=== PATIENT | male | born 1940 | race Caucasian/White ===

== ENCOUNTER → 2018-07-04 | Outpatient (CLI) | payer MEDICARE, BC ==
[2018-07-04 17:48] LABS: BASO # 0.1 (0.0-0.2); BASO % 1.2 % (0.0-2.0); EOS # 0.1 (0.0-0.7); GRAN # 3.6 (1.4-6.5); GRAN % 55.1 % (42.2-75.2); HEMATOCRIT 44.3 % (42.0-52.0); HEMOGLOBIN 15.3 g/dl (13.5-18.0); LYMPH # 2.1 (1.2-3.4); LYMPH % 31.6 % (20.0-51.0); MEAN CELL VOLUME 99 fl (80.0-100.0); MEAN CORPUSCULAR HEMOGLOBIN 34 pg (27.0-31.0); MEAN CORPUSCULAR HGB CONC 35 g/dl (33.0-37.0); MEAN PLATELET VOLUME 9.5 fl (7.4-10.4); MONO # 0.6 (0.1-0.6); MONO % 9.8 % (1.7-9.3); PLATELET COUNT 175 K/mm3 (130-400); RED BLOOD COUNT 4.47 M/mm3 (4.20-5.60); REDCELL DISTRIBUTION WIDTH-CV 11.7 % (11.5-14.5)
[2018-07-04 19:07] LABS: ALBUMIN 3.6 gm/dL (3.5-5.0); BILIRUBIN,TOTAL 0.6 mg/dL (0.0-1.0); CALCIUM 9.1 mg/dL (8.4-10.2); CREATININE, serum 1.09 mg/dL (0.66-1.25); POTASSIUM 4.5 mmol/L (3.4-5.0); TOTAL PROTEIN 6.5 gm/dL (6.4-8.2)
== END ==
LOC: COL.LAB 17:02
PROVIDERS: Family Medicine
DX: R55 Syncope and collapse (principal)

== ENCOUNTER 2020-08-14 07:56 | Inpatient (IN) | payer MEDICARE, BC ==
[~2020-08-14] VITALS: Ht 170.2 cm; Wt 73.3 kg
[2020-08-14] VITALS (225 sets, daily range): BP systolic 146–167; BP diastolic 64–78; PULSE 95–107; TEMP 98–98.8; O2SAT 79–98
[2020-08-14] MEDS ORDERED: TOPROL XL 25MG25 MG PO (08:05)
[2020-08-14] MEDS ORDERED: NAMENDA 10MG TA10 MG PO (08:05)
[2020-08-14] MEDS ORDERED: RISPERDAL 0.20.25 MG PO (08:06)
[2020-08-14] MEDS ORDERED: ZOCOR 40MG40 MG PO (08:07)
[2020-08-14] MEDS ORDERED: GLUCOPHAGE500 MG/TAB PO (08:08)
[2020-08-14] MEDS ORDERED: ASPIRIN E.C. 8181 MG PO (08:08)
[2020-08-14] MEDS ORDERED: ONE-A-DAY ESSE1 EACH PO (08:09)
[2020-08-14] MEDS ORDERED: VITAMIN D31000 IU PO (08:09)
[2020-08-14] MEDS ORDERED: STOOL SOFTENER100 M2 PO (08:10)
[2020-08-14 08:24] LABS: COLLECTION METHOD CATHETER
[2020-08-14 08:30] LABS: PH 5 (5-8); URINE APPEARANCE Clear; URINE BACTERIA None Seen /hpf; URINE BILIRUBIN Negative (NEGATIVE); URINE BLOOD Negative (NEGATIVE); URINE COLOR Yellow; URINE GLUCOSE 3+ (NEGATIVE); URINE KETONE 2+ (NEGATIVE); URINE LEUKOCYTE ESTERASE Negative (NEGATIVE); URINE NITRATE Negative (NEGATIVE); URINE PROTEIN(semi-quant) Negative (NEGATIVE); URINE RBC 0-2 /hpf; URINE UROBILINOGEN >=4.0 mg/dL (NEGATIVE)
[2020-08-14 08:52] LABS: MUCOUS Present /lpf; SQUAMOUS EPITHELIAL 0-2 /hpf
[2020-08-14 09:00] LABS: ALKALINE PHOSPHATASE 89 U/L (50-136); ANION GAP 13 mmol/L (7-16); AST,SGOT 41 U/L (15-37); BASO % 0.3 % (0.0-2.0); BILIRUBIN,TOTAL 1.3 mg/dL (0.0-1.0); BLOOD UREA NITROGEN 12 mg/dL (9-20); CARBON DIOXIDE 23 mmol/L (22-30); CHLORIDE 102 mmol/L (98-107); GLUCOSE 290 mg/dL (74-106); GRAN # 13.9 (1.4-6.5); GRAN % 88.5 % (42.2-75.2); HEMATOCRIT 44.7 % (42.0-52.0); HEMOGLOBIN 15.3 g/dl (13.5-18.0); LIPASE 59 U/L (23-300); LYMPH # 0.4 (1.2-3.4); LYMPH % 2.7 % (20.0-51.0); MEAN CELL VOLUME 97 fl (80.0-100.0); MEAN CORPUSCULAR HEMOGLOBIN 33 pg (27.0-31.0); MEAN CORPUSCULAR HGB CONC 34 g/dl (33.0-37.0); MEAN PLATELET VOLUME 9.9 fl (7.4-10.4); MONO # 1.3 (0.1-0.6); MONO % 8.1 % (1.7-9.3); PLATELET COUNT 189 K/mm3 (130-400); POTASSIUM 4.4 mmol/L (3.4-5.0); REDCELL DISTRIBUTION WIDTH-CV 11.5 % (11.5-14.5); SODIUM 137 mmol/L (137-145); TOTAL PROTEIN 7.2 gm/dL (6.4-8.2)
[2020-08-14 09:06] LABS: ALANINE AMINOTRANSFERASE 27 U/L (4-49)
[2020-08-14 09:25] LABS: TROPONIN-I < 0.012 ng/mL (0.000-0.035)
[2020-08-15] VITALS (8 sets, daily range): BP systolic 140–168; BP diastolic 63–91; PULSE 89–115; TEMP 97.5–99.6
[2020-08-15 06:31] LABS: MEAN CELL VOLUME 97 fl (80.0-100.0); MEAN CORPUSCULAR HEMOGLOBIN 34 pg (27.0-31.0); MEAN CORPUSCULAR HGB CONC 35 g/dl (33.0-37.0); MEAN PLATELET VOLUME 10.5 fl (7.4-10.4); PLATELET COUNT 165 K/mm3 (130-400); RED BLOOD COUNT 4.12 M/mm3 (4.20-5.60); REDCELL DISTRIBUTION WIDTH-CV 11.9 % (11.5-14.5)
[2020-08-15 06:45] LABS: CALCIUM 8.5 mg/dL (8.4-10.2); CREATININE, serum 0.53 (0.66-1.25); MAGNESIUM 1.6 mg/dL (1.6-2.3); POTASSIUM 3.3 mmol/L (3.4-5.0)
[2020-08-15 07:02] LABS: BAND 12 % (0-10); LYMPHOCYTE 4 % (20.0-51.0); NEUTROPHILS 77 % (42.0-75.2); PLATELET ESTIMATE NORMAL (NORMAL)
[2020-08-16] VITALS (353 sets, daily range): BP systolic 141–159; BP diastolic 77–93; PULSE 84–107; TEMP 98–98.5; O2SAT 91–100
[2020-08-16 08:04] LABS: HEMATOCRIT 38.6 % (42.0-52.0); HEMOGLOBIN 12.7 g/dl (13.5-18.0); MEAN CELL VOLUME 101 fl (80.0-100.0); MEAN CORPUSCULAR HEMOGLOBIN 33 pg (27.0-31.0); MEAN CORPUSCULAR HGB CONC 33 g/dl (33.0-37.0); MEAN PLATELET VOLUME 10.5 fl (7.4-10.4); PLATELET COUNT 154 K/mm3 (130-400); RED BLOOD COUNT 3.81 M/mm3 (4.20-5.60); REDCELL DISTRIBUTION WIDTH-CV 12.1 % (11.5-14.5)
[2020-08-16 08:12] LABS: ALBUMIN 2.7 gm/dL (3.5-5.0); BILIRUBIN,TOTAL 2.5 mg/dL (0.0-1.0); CALCIUM 8.1 mg/dL (8.4-10.2); CREATININE, serum 0.52 (0.66-1.25); POTASSIUM 3.6 mmol/L (3.4-5.0); TOTAL PROTEIN 5.5 gm/dL (6.4-8.2)
[2020-08-16 08:23] LABS: HYPOCHROMIA 1+; LYMPHOCYTE 4 % (20.0-51.0); MYELOCYTE 1 % (0-0); NEUTROPHILS 90 % (42.0-75.2); PLATELET ESTIMATE NORMAL (NORMAL)
[2020-08-17] VITALS (678 sets, daily range): BP systolic 138–162; BP diastolic 74–96; PULSE 80–107; TEMP 98.7–99.1; O2SAT 87–98
[2020-08-17 05:40] LABS: BASO % 0.3 % (0.0-2.0); EOS # 0.1 (0.0-0.7); EOS % 0.7 % (0-4.0); GRAN # 8.5 (1.4-6.5); GRAN % 77.7 % (42.2-75.2); HEMOGLOBIN 11.7 g/dl (13.5-18.0); LYMPH # 1.2 (1.2-3.4); LYMPH % 10.9 % (20.0-51.0); MEAN CELL VOLUME 100 fl (80.0-100.0); MEAN CORPUSCULAR HEMOGLOBIN 34 pg (27.0-31.0); MEAN CORPUSCULAR HGB CONC 34 g/dl (33.0-37.0); MEAN PLATELET VOLUME 9.7 fl (7.4-10.4); MONO % 9.6 % (1.7-9.3); PLATELET COUNT 167 K/mm3 (130-400); RED BLOOD COUNT 3.49 M/mm3 (4.20-5.60); REDCELL DISTRIBUTION WIDTH-CV 12.2 % (11.5-14.5)
[2020-08-17 05:45] LABS: HEMATOCRIT 34.8 % (42.0-52.0)
[2020-08-17 05:53] LABS: ALBUMIN 2.5 gm/dL (3.5-5.0); BILIRUBIN,TOTAL 2.9 mg/dL (0.0-1.0); CALCIUM 7.9 mg/dL (8.4-10.2); CREATININE, serum 0.51 (0.66-1.25); POTASSIUM 3.7 mmol/L (3.4-5.0); TOTAL PROTEIN 5.4 gm/dL (6.4-8.2)
[2020-08-18] VITALS (7 sets, daily range): BP systolic 139–169; BP diastolic 63–89; PULSE 76–110; TEMP 97.7–99.8
[2020-08-18 06:49] LABS: BASO # 0.1 (0.0-0.2); BASO % 0.6 % (0.0-2.0); EOS # 0.3 (0.0-0.7); EOS % 3.2 % (0-4.0); GRAN # 5.7 (1.4-6.5); GRAN % 72.3 % (42.2-75.2); LYMPH % 12.6 % (20.0-51.0); MEAN CELL VOLUME 100 fl (80.0-100.0); MEAN CORPUSCULAR HEMOGLOBIN 34 pg (27.0-31.0); MEAN CORPUSCULAR HGB CONC 34 g/dl (33.0-37.0); MEAN PLATELET VOLUME 9.7 fl (7.4-10.4); MONO # 0.8 (0.1-0.6); MONO % 10.4 % (1.7-9.3); PLATELET COUNT 172 K/mm3 (130-400); RED BLOOD COUNT 2.94 M/mm3 (4.20-5.60); REDCELL DISTRIBUTION WIDTH-CV 12.2 % (11.5-14.5)
[2020-08-18 06:51] LABS: HEMATOCRIT 29.4 % (42.0-52.0)
[2020-08-18 07:04] LABS: CALCIUM 7.8 mg/dL (8.4-10.2); CREATININE, serum 0.49 (0.66-1.25); POTASSIUM 3.4 mmol/L (3.4-5.0)
[2020-08-18 08:12] LABS: ALBUMIN 2.2 gm/dL (3.5-5.0); BILIRUBIN UNCONJUGATED 0.7 mg/dL (0.0-1.1); BILIRUBIN,DIRECT 0.5 mg/dL (0.0-0.4); BILIRUBIN,TOTAL 1.2 mg/dL (0.0-1.0); TOTAL PROTEIN 4.8 gm/dL (6.4-8.2)
[2020-08-19] VITALS (357 sets, daily range): BP systolic 132–181; BP diastolic 76–104; PULSE 91–121; TEMP 98.2–100.1; O2SAT 88–100
[2020-08-19 07:20] LABS: HEMOGLOBIN 11.8 g/dl (13.5-18.0); MEAN CELL VOLUME 98 fl (80.0-100.0); MEAN CORPUSCULAR HEMOGLOBIN 33 pg (27.0-31.0); MEAN CORPUSCULAR HGB CONC 34 g/dl (33.0-37.0); MEAN PLATELET VOLUME 9.8 fl (7.4-10.4); PLATELET COUNT 240 K/mm3 (130-400); RED BLOOD COUNT 3.57 M/mm3 (4.20-5.60); REDCELL DISTRIBUTION WIDTH-CV 11.9 % (11.5-14.5)
[2020-08-19 07:26] LABS: HEMATOCRIT 34.8 % (42.0-52.0)
[2020-08-19 08:10] LABS: BAND 5 % (0-10); EOSINOPHIL 1 % (0-4); LYMPHOCYTE 8 % (20.0-51.0); NEUTROPHILS 77 % (42.0-75.2); NUCLEATED RED BLOOD CELL 1 (0-6); PLATELET ESTIMATE NORMAL (NORMAL)
[2020-08-19 08:30] LABS: ALBUMIN 2.8 gm/dL (3.5-5.0); BILIRUBIN,TOTAL 1.4 mg/dL (0.0-1.0); CALCIUM 8.1 mg/dL (8.4-10.2); CREATININE, serum 0.46 (0.66-1.25); POTASSIUM 3.4 mmol/L (3.4-5.0); TOTAL PROTEIN 5.9 gm/dL (6.4-8.2)
[2020-08-19 10:37] LABS: ARTERIAL BLD GAS O2 SATURATION 96.1 % (92-100); ARTERIAL BLD GAS TCO2 CT 14.7; ARTERIAL BLOOD GAS BASE EXCESS -7.8 (-2-2); ARTERIAL BLOOD GAS HCO3 14.1 meq/L (22-26); ARTERIAL BLOOD GAS PO2 78.7 mmHg (80-100); ARTERIAL BLOOD GAS pH 7.44 (7.35-7.45)
[2020-08-19 10:38] LABS: ARTERIAL BLOOD GAS PCO2 21.2 mmHg (35-45)
[2020-08-20] VITALS (338 sets, daily range): BP systolic 116–152; BP diastolic 58–76; PULSE 77–95; TEMP 97.2–99.1; O2SAT 85–100
[2020-08-20 05:07] LABS: ARTERIAL BLD GAS O2 SATURATION 95.6 % (92-100); ARTERIAL BLD GAS TCO2 CT 21.7; ARTERIAL BLOOD GAS BASE EXCESS -2.4 (-2-2); ARTERIAL BLOOD GAS HCO3 20.7 meq/L (22-26); ARTERIAL BLOOD GAS PCO2 30.6 mmHg (35-45); ARTERIAL BLOOD GAS PO2 79.5 mmHg (80-100); ARTERIAL BLOOD GAS pH 7.45 (7.35-7.45)
[2020-08-20 05:26] LABS: HEMOGLOBIN 10.6 g/dl (13.5-18.0); MEAN CELL VOLUME 99 fl (80.0-100.0); MEAN CORPUSCULAR HEMOGLOBIN 33 pg (27.0-31.0); MEAN CORPUSCULAR HGB CONC 33 g/dl (33.0-37.0); MEAN PLATELET VOLUME 9.6 fl (7.4-10.4); PLATELET COUNT 218 K/mm3 (130-400); RED BLOOD COUNT 3.21 M/mm3 (4.20-5.60); REDCELL DISTRIBUTION WIDTH-CV 12.4 % (11.5-14.5)
[2020-08-20 05:27] LABS: HEMATOCRIT 31.9 % (42.0-52.0)
[2020-08-20 05:36] LABS: ALBUMIN 2.4 gm/dL (3.5-5.0); BILIRUBIN,TOTAL 1.1 mg/dL (0.0-1.0); CALCIUM 7.9 mg/dL (8.4-10.2); CREATININE, serum 0.52 (0.66-1.25); MAGNESIUM 1.8 mg/dL (1.6-2.3); PHOSPHOROUS 3.4 mg/dL (2.5-4.5); POTASSIUM 3.3 mmol/L (3.4-5.0); TOTAL PROTEIN 5.3 gm/dL (6.4-8.2)
[2020-08-20 05:48] LABS: BAND 4 % (0-10); LYMPHOCYTE 13 % (20.0-51.0); NEUTROPHILS 81 % (42.0-75.2)
[2020-08-20 05:49] LABS: ANISOCYTOSIS 1+; PLATELET ESTIMATE NORMAL (NORMAL); SCHISTOCYTES 1+
[2020-08-21] VITALS (7 sets, daily range): BP systolic 133–171; BP diastolic 61–80; PULSE 92–100; TEMP 97.3–99
[2020-08-21 06:54] LABS: HEMOGLOBIN 10.5 g/dl (13.5-18.0); MEAN CELL VOLUME 99 fl (80.0-100.0); MEAN CORPUSCULAR HEMOGLOBIN 33 pg (27.0-31.0); MEAN CORPUSCULAR HGB CONC 34 g/dl (33.0-37.0); MEAN PLATELET VOLUME 9.8 fl (7.4-10.4); PLATELET COUNT 260 K/mm3 (130-400); RED BLOOD COUNT 3.15 M/mm3 (4.20-5.60); REDCELL DISTRIBUTION WIDTH-CV 12.4 % (11.5-14.5)
[2020-08-21 06:56] LABS: HEMATOCRIT 31.3 % (42.0-52.0)
[2020-08-21 07:04] LABS: CALCIUM 7.8 mg/dL (8.4-10.2); CREATININE, serum 0.54 (0.66-1.25); POTASSIUM 3.3 mmol/L (3.4-5.0)
[2020-08-21 07:57] LABS: PLATELET ESTIMATE NORMAL (NORMAL)
[2020-08-21 08:10] LABS: NEUTROPHILS 74 % (42.0-75.2)
[2020-08-21 08:11] LABS: EOSINOPHIL 3 % (0-4); LYMPHOCYTE 19 % (20.0-51.0)
[2020-08-22 05:12] VITALS: BP 133/64; PULSE 85; TEMP 98.9
[2020-08-22 06:15] LABS: HEMOGLOBIN 10.7 g/dl (13.5-18.0); MEAN CELL VOLUME 100 fl (80.0-100.0); MEAN CORPUSCULAR HEMOGLOBIN 33 pg (27.0-31.0); MEAN CORPUSCULAR HGB CONC 33 g/dl (33.0-37.0); MEAN PLATELET VOLUME 9.9 fl (7.4-10.4); PLATELET COUNT 286 K/mm3 (130-400); RED BLOOD COUNT 3.22 M/mm3 (4.20-5.60); REDCELL DISTRIBUTION WIDTH-CV 12.3 % (11.5-14.5)
[2020-08-22 06:23] LABS: CREATININE, serum 0.7 (0.66-1.25); POTASSIUM 3.6 mmol/L (3.4-5.0)
[2020-08-22 06:36] LABS: HEMATOCRIT 32.3 % (42.0-52.0)
[2020-08-22 07:41] LABS: BAND 4 % (0-10); EOSINOPHIL 1 % (0-4); LYMPHOCYTE 10 % (20.0-51.0); MYELOCYTE 1 % (0-0); NEUTROPHILS 77 % (42.0-75.2)
[2020-08-22 07:42] VITALS: BP 160/92; PULSE 92; TEMP 98.8
[2020-08-22 07:42] LABS: PLATELET ESTIMATE NORMAL (NORMAL)
[2020-08-22 07:44] LABS: POLYCHROMASIA 1+
[2020-08-22 11:55] VITALS: BP 143/65; PULSE 89; TEMP 98.5
[2020-08-22 14:20] LABS: MAGNESIUM 1.9 mg/dL (1.6-2.3); PHOSPHOROUS 3.3 mg/dL (2.5-4.5)
[2020-08-22 15:57] VITALS: BP 149/72; PULSE 91; TEMP 98.6
[2020-08-22 19:21] VITALS: BP 145/62; PULSE 86; TEMP 98.3
[2020-08-22 23:30] VITALS: BP 168/95; PULSE 96; TEMP 97.3
[2020-08-23 03:55] VITALS: BP 145/75; PULSE 100; TEMP 98.5
[2020-08-23 07:03] LABS: HEMOGLOBIN 11.3 g/dl (13.5-18.0); MEAN CELL VOLUME 96 fl (80.0-100.0); MEAN CORPUSCULAR HEMOGLOBIN 33 pg (27.0-31.0); MEAN CORPUSCULAR HGB CONC 34 g/dl (33.0-37.0); PLATELET COUNT 289 K/mm3 (130-400); RED BLOOD COUNT 3.43 M/mm3 (4.20-5.60); REDCELL DISTRIBUTION WIDTH-CV 12.1 % (11.5-14.5)
[2020-08-23 07:24] LABS: CREATININE, serum 0.87 (0.66-1.25); POTASSIUM 3.6 mmol/L (3.4-5.0)
[2020-08-23 07:56] LABS: BAND 5 % (0-10); EOSINOPHIL 1 % (0-4); LYMPHOCYTE 23 % (20.0-51.0); METAMYELOCYTE 2 % (0-0); NEUTROPHILS 64 % (42.0-75.2)
[2020-08-23 07:57] LABS: PLATELET ESTIMATE NORMAL (NORMAL)
[2020-08-23 08:05] VITALS: BP 121/73; PULSE 78; TEMP 97.5
[2020-08-23 11:33] VITALS: BP 139/70; PULSE 93; TEMP 98.6
[2020-08-23 15:37] VITALS: BP 154/87; PULSE 96; TEMP 98.8
[2020-08-23 20:39] VITALS: BP 145/72; PULSE 94; TEMP 98.6
[2020-08-23 23:47] VITALS: BP 153/79; PULSE 95; TEMP 99.1
[2020-08-24 04:20] VITALS: BP 139/79; PULSE 89; TEMP 98.7
[2020-08-24 07:21] LABS: BASO # 0.1 (0.0-0.2); BASO % 0.7 % (0.0-2.0); EOS # 0.3 (0.0-0.7); EOS % 3.4 % (0-4.0); GRAN # 6.6 (1.4-6.5); GRAN % 69.5 % (42.2-75.2); LYMPH # 1.7 (1.2-3.4); LYMPH % 17.7 % (20.0-51.0); MEAN CELL VOLUME 99 fl (80.0-100.0); MEAN CORPUSCULAR HGB CONC 33 g/dl (33.0-37.0); MEAN PLATELET VOLUME 10.2 fl (7.4-10.4); MONO # 0.7 (0.1-0.6); MONO % 7.3 % (1.7-9.3); PLATELET COUNT 345 K/mm3 (130-400); RED BLOOD COUNT 2.83 M/mm3 (4.20-5.60); REDCELL DISTRIBUTION WIDTH-CV 12.1 % (11.5-14.5)
[2020-08-24 07:23] LABS: HEMOGLOBIN 9.3 g/dl (13.5-18.0); MEAN CORPUSCULAR HEMOGLOBIN 33 pg (27.0-31.0)
[2020-08-24 07:30] LABS: CALCIUM 8.3 mg/dL (8.4-10.2); CREATININE, serum 0.44 (0.66-1.25); MAGNESIUM 2.1 mg/dL (1.6-2.3); PHOSPHOROUS 2.9 mg/dL (2.5-4.5); POTASSIUM 3.7 mmol/L (3.4-5.0)
[2020-08-24 07:37] LABS: PRE ALBUMIN 9.1 mg/dL (17.6-36.0)
[2020-08-24 08:00] VITALS: BP 155/80; PULSE 94; TEMP 98.5
[2020-08-24 08:00] LABS: TSH w REFLEX 3.36 uIU/mL (0.465-4.680)
[2020-08-24 11:35] VITALS: BP 135/64; PULSE 96; TEMP 98
[2020-08-24 15:47] VITALS: BP 128/78; PULSE 95; TEMP 98.8
[2020-08-24 18:08] LABS: FOLATE (FOLIC ACID) 9.3 ng/mL (2.0-20.0)
[2020-08-24 20:00] VITALS: BP 152/74; PULSE 94; TEMP 98.8
[2020-08-25 00:13] VITALS: BP 149/76; PULSE 95; TEMP 98.6
[2020-08-25 03:11] VITALS: BP 146/79; PULSE 94; TEMP 99
[2020-08-25 06:03] LABS: BASO # 0.1 (0.0-0.2); BASO % 0.9 % (0.0-2.0); EOS # 0.2 (0.0-0.7); EOS % 2.6 % (0-4.0); GRAN # 6.1 (1.4-6.5); LYMPH # 1.5 (1.2-3.4); LYMPH % 17.1 % (20.0-51.0); MEAN CELL VOLUME 99 fl (80.0-100.0); MEAN CORPUSCULAR HGB CONC 34 g/dl (33.0-37.0); MONO # 0.6 (0.1-0.6); MONO % 7.1 % (1.7-9.3); PLATELET COUNT 351 K/mm3 (130-400); RED BLOOD COUNT 3.42 M/mm3 (4.20-5.60); REDCELL DISTRIBUTION WIDTH-CV 12.1 % (11.5-14.5)
[2020-08-25 06:07] LABS: HEMATOCRIT 33.9 % (42.0-52.0); MEAN CORPUSCULAR HEMOGLOBIN 33 pg (27.0-31.0)
[2020-08-25 06:12] LABS: HEMOGLOBIN 11.4 g/dl (13.5-18.0)
[2020-08-25 06:23] LABS: CALCIUM 8.2 mg/dL (8.4-10.2); CREATININE, serum 0.47 (0.66-1.25); PHOSPHOROUS 2.9 mg/dL (2.5-4.5); POTASSIUM 3.8 mmol/L (3.4-5.0)
[2020-08-25 07:18] VITALS: BP 138/83; PULSE 93; TEMP 98.3
[2020-08-25] MEDS ORDERED: RT ALBUTER2.5 MG/0.5 IH (10:13)
[2020-08-25] MEDS ORDERED: ROXANOL 20MG20 MG/ML SL (10:13)
[2020-08-25] MEDS ORDERED: ATROPINE 2 ML2 ML SL (10:14)
[2020-08-25] MEDS ORDERED: ATIVAN 1MG T1 MG/TAB PO (10:14)
[2020-08-25] MEDS ORDERED: SYSTANE 0.3-0.1 EACH OP (10:15)
[2020-08-25] MEDS ORDERED: DULCOLAX S10 MG/SUPP RC (10:16)
[2020-08-25] MEDS ORDERED: COMPAZINE25 MG/SUPP RC (10:16)
== END 2020-08-25 14:24 | disposition hospice, home (50) | DRG 853 ==
LOC: COL.ER 07:56 → ICU 11:40 → MEDICAL 11:40 → ICU 08-16 14:34 → SURG 08-17 14:46 → ICU 08-19 11:48 → SURG 08-20 13:29
PROVIDERS: Emergency Medicine; Internal Medicine Pulmonary Disease; Physician Assistant; Student in an Organized Health Care Education/Training Program; Surgery; ADMIT Internal Medicine
PROC: 0FT40ZZ Resection of Gallbladder, Open Approach (ICD-10-PCS; principal; 2020-08-16 11:45)
PROC: 0DJ64ZZ Inspection of Stomach, Percutaneous Endoscopic Approach (ICD-10-PCS; 2020-08-16 11:45)
PROC: 05HM33Z Insertion of Infusion Device into Right Internal Jugular Vein, Percutaneous Approach (ICD-10-PCS; 2020-08-16 11:45)
DX: A41.89 Other specified sepsis (principal); J96.91 Respiratory failure, unspecified with hypoxia; F02.81 Dementia in other diseases classified elsewhere, unspecified severity, with behavioral disturbance; K56.7 Ileus, unspecified; K81.0 Acute cholecystitis; G93.40 Encephalopathy, unspecified; J90 Pleural effusion, not elsewhere classified; J98.11 Atelectasis; R65.20 Severe sepsis without septic shock; R62.7 Adult failure to thrive; R78.9 Finding of unspecified substance, not normally found in blood; L30.4 Erythema intertrigo; G30.9 Alzheimer's disease, unspecified; E11.9 Type 2 diabetes mellitus without complications; I25.10 Atherosclerotic heart disease of native coronary artery without angina pectoris; E78.5 Hyperlipidemia, unspecified; D64.9 Anemia, unspecified; I10 Essential (primary) hypertension; Z51.5 Encounter for palliative care; Z66 Do not resuscitate; Z20.822 Contact with and (suspected) exposure to COVID-19; N28.1 Cyst of kidney, acquired; R07.89 Other chest pain; R53.81 Other malaise; E83.42 Hypomagnesemia; E87.6 Hypokalemia; Z79.84 Long term (current) use of oral hypoglycemic drugs; Z79.82 Long term (current) use of aspirin
CPT/HCPCS: 99223-AI; 99232-AI; 99233-AI; 99239; A4314; C9113; J0360; J1630; J1650; J1815; J1940; J2270; J2405; J2543; J2795; J3010; J3370; J3475; J3480; J7030; J7050; J7070; J7120; Q9967